=== PATIENT | female | born 1965 | race Caucasian/White ===

== ENCOUNTER 2018-08-19 15:51 | Emergency (ER) | payer OTHER ==
[2018-08-19 15:56] VITALS: BP 151/87; PULSE 72; RESP 18; TEMP 98.2
--- NOTE | 2018-08-19 16:54 | ED ---
Female Urogenital HPI - General Chief complaint: Urogenital Stated complaint: Poss UTI Time Seen by Provider: 08/19/18 16:26 Source: patient, RN notes reviewed, old records reviewed Mode of arrival: ambulatory Limitations: no limitations - History of Present Illness Initial comments: This is a 53-year-old female the ER for evaluation. Patient presents for evaluation regarding symptoms tract infection. Patient states is [place] urinary tract infections. Denies fever no abdominal pain. Is complaining of dysuria. Patient has no other complaints MD Complaint: dysuria -: days(s) Location: suprapubic Radiation: non-radiating Severity: mild Severity scale (1-10): 2 Quality: sharp Improves with: none Worsens with: urination Associated Symptoms: denies other symptoms - Related Data Home Medications Medication Instructions Recorded Confirmed Aspirin EC [Ecotrin Low Dose] 81 mg PO DAILY 08/19/18 08/19/18 Atenolol 100 mg PO DAILY 08/19/18 08/19/18 Atorvastatin [Lipitor] 80 mg PO HS 08/19/18 08/19/18 Cholecalciferol [Vitamin D3] 1,000 unit PO BID 08/19/18 08/19/18 Ferrous Sulfate [Feosol] 325 mg PO DAILY 08/19/18 08/19/18 Levothyroxine Sodium [Synthroid] 112 mcg PO DAILY 08/19/18 08/19/18 Lisinopril-Hctz 10-12.5 mg 1 tab PO DAILY 08/19/18 08/19/18 [Zestoretic 10-12.5] OXcarbazepine [Trileptal] 150 mg PO BID 08/19/18 08/19/18 [place]-3 Fatty Acids/Fish Oil [Fish 1 cap PO BID 08/19/18 08/19/18 Oil 1,000 mg Softgel] QUEtiapine [SEROquel] 50 mg PO HS 08/19/18 08/19/18 Previous Rx's Medication Instructions Recorded Nitrofurantoin Monohyd/M-Cryst 100 mg PO Q12HR #10 cap 08/19/18 [Macrobid] Allergies Allergy/AdvReac Type Severity Reaction Status Date / Time sulfamethoxazole Allergy Rash/Hives Verified 08/19/18 16:25 [From Bactrim] trimethoprim [From Bactrim] Allergy Rash/Hives Verified 08/19/18 16:25 Review of Systems ROS Statement: Those systems with pertinent positive or pertinent negative responses have been documented in the HPI. ROS Other: All systems not noted in ROS Statement are negative. Past Medical History Past Medical History: Hyperlipidemia, Hypertension, Thyroid Disorder Additional Past Medical History / Comment(s): hypothyroidism History of Any Multi-Drug Resistant Organisms: None Reported Past Surgical History: Hysterectomy, Orthopedic Surgery, Tonsillectomy Additional Past Surgical History / Comment(s): lithotripsy x3 Past Psychological History: Bipolar Smoking Status: Never smoker Past Alcohol Use History: None Reported Past Drug Use History: None Reported General Exam Limitations: no limitations General appearance: alert, in no apparent distress Head exam: Present: atraumatic, normocephalic, normal inspection Eye exam: Present: normal appearance, PERRL, EOMI. Absent: scleral icterus, conjunctival injection, periorbital swelling ENT exam: Present: normal exam, mucous membranes moist Neck exam: Present: normal inspection. Absent: tenderness, meningismus, lymphadenopathy Respiratory exam: Present: normal lung sounds bilaterally. Absent: respiratory distress, wheezes, rales, rhonchi, stridor Cardiovascular Exam: Present: regular rate, normal rhythm, normal heart sounds. Absent: systolic murmur, diastolic murmur, rubs, gallop, clicks GI/Abdominal exam: Present: soft, normal bowel sounds. Absent: distended, tenderness, guarding, rebound, rigid Extremities exam: Present: normal inspection, full ROM, normal capillary refill. Absent: tenderness, pedal edema, joint swelling, calf tenderness Back exam: Present: normal inspection Neurological exam: Present: alert, oriented X3, CN II-XII intact Psychiatric exam: Present: normal affect, normal mood Skin exam: Present: warm, dry, intact, normal color. Absent: rash Course Vital Signs 08/19/18 15:52 Temperature 98.2 F Pulse Rate 72 Respiratory 18 Rate Blood Pressure 151/87 O2 Sat by Pulse 99 Oximetry Medical Decision Making - Medical Decision Making 51 female the ER positive UTI, patient to be discharged on antibiotics - Lab Data Lab Results 08/19/18 Range/Units 16:47 Urine Color Yellow Urine Appearance Cloudy H (Clear) Urine pH 5.5 (5.0-8.0) Ur Specific [place] 1.018 (1.001-1.035) Urine Protein Negative (Negative) Urine Glucose (UA) Negative (Negative) Urine Ketones Negative (Negative) Urine Blood Trace H (Negative) Urine Nitrite Negative (Negative) Urine Bilirubin Negative (Negative) Urine Urobilinogen <2.0 (<2.0) mg/dL Ur Leukocyte Esterase Large H (Negative) Urine RBC 2 (0-5) /hpf Urine WBC 95 H (0-5) /hpf Ur Squamous Epith Cells 1 (0-4) /hpf Urine Bacteria Many H (None) /hpf Hyaline Casts 1 (0-2) /lpf Urine Mucus Rare H (None) /hpf Disposition Clinical Impression: Urinary tract infection Disposition: HOME SELF-CARE Condition: Good Instructions (If sedation given, give patient instructions): Urinary Tract Infection in Women (ED) Prescriptions: Nitrofurantoin Monohyd/M-Cryst [Macrobid] 100 mg PO Q12HR #10 cap Is patient prescribed a controlled substance at d/c from ED?: No Referrals: None,Stated [Primary Care Provider] - 1-2 days
[2018-08-19 17:05] LABS: Bacteria,Urine Many /hpf; Hyaline Casts,Urine 1 /lpf (0-2); Mucus,Urine Rare /hpf; RBC,Urine 2 /hpf (0-5); Squamous Epithelial Cell,Urine 1 /hpf (0-4); WBC,Urine 95 /hpf (0-5)
[2018-08-19 17:12] LABS: Appearance,Urine Cloudy (Clear); Bilirubin,Urine Negative (Negative); Blood,Urine Trace (Negative); Color,Urine Yellow; Glucose,Urine (UA) Negative (Negative); Ketones,Urine Negative (Negative); Leukocyte Esterase,Urine Large (Negative); Nitrite,Urine Negative (Negative); PH, Urine 5.5 (5.0-8.0); Protein,Urine Negative (Negative); Specific Gravity,Urine 1.018 (1.001-1.035); Urobilinogen,Urine <2.0 mg/dL (<2.0)
== END 2018-08-19 17:36 | disposition home or self-care (01) ==
LOC: EC 15:51
DX: N39.0 Urinary tract infection, site not specified (principal); E78.5 Hyperlipidemia, unspecified; I10 Essential (primary) hypertension; E03.9 Hypothyroidism, unspecified; F31.9 Bipolar disorder, unspecified; Z79.82 Long term (current) use of aspirin; Z79.890 Hormone replacement therapy; Z79.899 Other long term (current) drug therapy; Z88.1 Allergy status to other antibiotic agents; Z88.2 Allergy status to sulfonamides; Z90.710 Acquired absence of both cervix and uterus
CPT/HCPCS: 81001; 87077; 87086; 87186; 99283

== ENCOUNTER 2018-12-14 09:54 | Emergency (ER) | payer OTHER ==
[2018-12-14 10:03] VITALS: BP 163/91; PULSE 82; RESP 18; TEMP 98.7
--- NOTE | 2018-12-14 10:29 | ED ---
Extremity Problem HPI - General Chief complaint: Extremity Problem,Nontraumatic Stated complaint: rt arm pain Time Seen by Provider: 12/14/18 10:05 Source: patient Mode of arrival: ambulatory Limitations: no limitations - History of Present Illness Initial comments: 53-year-old female presenting today for chief complaint of right elbow pain. Patient states she works at a [employer] and repetitively does a specific motion as cause pain near the right elbow and increases with extension of the wrist. Patient states she was diagnosed with tennis elbow on and was given an oral steroid. Patient states this does not seem to be helping. Patient has not rested the right elbow. Patient states she continues to work. Patient that she has been applying heat to the area she states is not improving. Patient states imaging studies have not been obtained patient denies any numbness tingling loss sensation coolness or pallor of the extremity. Patient denies any swelling or redness of the elbow fever chills or night sweats. Remaining review of systems negative upon arrival patient appears well no signs of acute distress - Related Data Home Medications Medication Instructions Recorded Confirmed Aspirin EC [Ecotrin Low Dose] 81 mg PO DAILY 08/19/18 12/14/18 Atenolol 100 mg PO DAILY 08/19/18 12/14/18 Atorvastatin [Lipitor] 80 mg PO HS 08/19/18 12/14/18 Ferrous Sulfate [Feosol] 325 mg PO DAILY 08/19/18 12/14/18 Levothyroxine Sodium [Synthroid] 112 mcg PO DAILY 08/19/18 12/14/18 Lisinopril-Hctz 10-12.5 mg 1 tab PO DAILY 08/19/18 12/14/18 [Zestoretic 10-12.5] [place]-3 Fatty Acids/Fish Oil [Fish 1 cap PO BID 08/19/18 12/14/18 Oil 1,000 mg Softgel] OXcarbazepine [Trileptal] 300 mg PO BID 12/14/18 12/14/18 Pantoprazole [Protonix] 40 mg PO DAILY 12/14/18 12/14/18 QUEtiapine [SEROquel] 100 mg PO HS 12/14/18 12/14/18 amLODIPine [Norvasc] 5 mg PO HS 12/14/18 12/14/18 predniSONE 40 mg PO DAILY 12/14/18 12/14/18 Allergies Allergy/AdvReac Type Severity Reaction Status Date / Time sulfamethoxazole Allergy Rash/Hives Verified 12/14/18 10:09 [From Bactrim] trimethoprim [From Bactrim] Allergy Rash/Hives Verified 12/14/18 10:09 Review of Systems ROS Statement: Those systems with pertinent positive or pertinent negative responses have been documented in the HPI. ROS Other: All systems not noted in ROS Statement are negative. Past Medical History Past Medical History: Hyperlipidemia, Hypertension, Thyroid Disorder Additional Past Medical History / Comment(s): hypothyroidism, EKG-leftBBB History of Any Multi-Drug Resistant Organisms: None Reported Past Surgical History: Hysterectomy, Orthopedic Surgery, Tonsillectomy Additional Past Surgical History / Comment(s): lithotripsy x3 Past Psychological History: Bipolar Smoking Status: Never smoker Past Alcohol Use History: None Reported Past Drug Use History: None Reported General Exam - General Exam Comments Initial Comments: General: The patient is awake and alert, in no distress, and does not appear acutely ill. Eye: Pupils are equal, round and reactive to light, extra-ocular movements are intact. No nystagmus. There is normal conjunctiva bilaterally. No signs of icterus. Ears, nose, mouth and throat: There are moist mucous membranes and no oral lesions. Neck: The neck is supple, there is no tenderness or JVD. Cardiovascular: There is a regular rate and rhythm. No murmur, rub or gallop is appreciated. Respiratory: Lungs are clear to auscultation, respirations are non-labored, breath sounds are equal. No wheezes, stridor, rales, or rhonchi. Musculoskeletal: Patient is able to fully range at the elbows bilaterally patient does not have significant tenderness patient states she is increased pain at the right elbow with extension of the wrist. Patient is tender over the lateral upper condyle. Normal ROM, no tenderness at the wrists or shoulders bilaterally. Strength 5/5 shoulders elbows and wrists bilaterally. Sensation intact both proximal distal to injury site. Radial pulses equal bilaterally 2+. Neurological: A&O x 3. CN II-XII intact, There are no obvious motor or sensory deficits. Coordination appears grossly intact. Speech is normal. Skin: Skin is warm and dry and no rashes or lesions are noted. Psychiatric: Cooperative, appropriate mood & affect, normal judgment. Limitations: no limitations Course Vital Signs 12/14/18 10:00 Temperature 98.7 F Pulse Rate 82 Respiratory 18 Rate Blood Pressure 163/91 O2 Sat by Pulse 100 Oximetry Medical Decision Making - Medical Decision Making Very well-appearing 53-year-old female recently diagnosed with tennis elbow. Patient requesting imaging studies. Patient denies any trauma to the elbow. Patient does have repetitive range of motion at work. Patient has most pain with extension at the right wrist. I feel this is consistent with tennis elbow. Imaging studies are obtained returned rule out osseous abnormality. No acute abnormality. Patient be discharged with orthopedic surgery follow-up instruction to obtain brace for extensor tendinitis. Patient was given Toradol in the emergency department. Patient is agreeable care plan I instructed the importance of rest from the repetitive movements use of ice and NSAIDs at home. Patient verbalized understanding. Patient was discharged appearing well. Disposition Clinical Impression: Tendonitis, Overuse injury Disposition: HOME SELF-CARE Instructions (If sedation given, give patient instructions): Tennis Elbow (ED) Additional Instructions: Please use medication as discussed. Please follow-up with family doctor in the next 2 days, and orthopedic surgery if symptoms persist. Recommend resting elbow and applying ice as discussed. Please return to emergency room if the symptoms increase or worsen or for any other concerns. Is patient prescribed a controlled substance at d/c from ED?: No Referrals: Coby Zimmerman MD [Primary Care Provider] - 1-2 days Eduardo Dailey MD [STAFF PHYSICIAN] - 1-2 days Time of Disposition: 10:57
--- NOTE | 2018-12-14 10:51 | XR ---
EXAMINATION TYPE: XR elbow complete RT , 3 VIEWS DATE OF EXAM ORDERED: 12/14/2018 HISTORY: Pain. COMPARISON: None. FINDINGS: No fracture, dislocation or elbow joint effusion is seen. IMPRESSION: NO ACUTE OSSEOUS LESION.
[2018-12-14] MEDS ORDERED: KETOROLAC 30 MG/ML 1 ML VIAL IM STA (10:58)
== END 2018-12-14 11:16 | disposition home or self-care (01) ==
LOC: EC 09:54
DX: M70.88 Other soft tissue disorders related to use, overuse and pressure other site (principal); E78.5 Hyperlipidemia, unspecified; I10 Essential (primary) hypertension; E03.9 Hypothyroidism, unspecified; F31.9 Bipolar disorder, unspecified; Z79.82 Long term (current) use of aspirin; Z79.890 Hormone replacement therapy; Z79.52 Long term (current) use of systemic steroids; Z79.899 Other long term (current) drug therapy; Z88.2 Allergy status to sulfonamides
CPT/HCPCS: 73080; 99283; 96372; J1885

== ENCOUNTER 2018-12-21 20:52 | Emergency (ER) | payer OTHER ==
[2018-12-21 22:03] VITALS: TEMP 98
--- NOTE | 2018-12-21 22:24 | ED ---
Female Urogenital HPI - General Source: patient Mode of arrival: ambulatory Limitations: no limitations <Kanchan Lieberman - Last Filed: 12/22/18 00:40> <Armida Interiano - Last Filed: 12/22/18 07:35> - General Chief complaint: Urogenital Stated complaint: Abscess Time Seen by Provider: 12/21/18 21:51 - History of Present Illness Initial comments: 53-year-old female patient presents to the emergency department today for evaluation of a lesion to her left labia. Patient states that she noticed this "lump" 3 days ago. Patient states the area seems to be getting bigger. Patient states she did try to squeeze it but nothing would come out. Patient is reporting mild discomfort and burning to the area. Denies any itching. Denies any history of similar lesion. She denies any fever or chills with this. Denies any abnormal vaginal bleeding or discharge. Denies any hematuria, dysuria, urinary frequency, urinary urgency. Patient denies any recent rash, shortness breath, chest pain, abdominal pain, nausea, vomiting, diarrhea, constipation, back pain, numbness, tingling, dizziness, weakness, headache, visual changes, or any other complaints. (Kanchan Lieberman) - Related Data Home Medications Medication Instructions Recorded Confirmed Aspirin EC [Ecotrin Low Dose] 81 mg PO DAILY 08/19/18 12/14/18 Atenolol 100 mg PO DAILY 08/19/18 12/14/18 Atorvastatin [Lipitor] 80 mg PO HS 08/19/18 12/14/18 Ferrous Sulfate [Feosol] 325 mg PO DAILY 08/19/18 12/14/18 Levothyroxine Sodium [Synthroid] 112 mcg PO DAILY 08/19/18 12/14/18 Lisinopril-Hctz 10-12.5 mg 1 tab PO DAILY 08/19/18 12/14/18 [Zestoretic 10-12.5] [place]-3 Fatty Acids/Fish Oil [Fish 1 cap PO BID 08/19/18 12/14/18 Oil 1,000 mg Softgel] OXcarbazepine [Trileptal] 300 mg PO BID 12/14/18 12/14/18 Pantoprazole [Protonix] 40 mg PO DAILY 12/14/18 12/14/18 QUEtiapine [SEROquel] 100 mg PO HS 12/14/18 12/14/18 amLODIPine [Norvasc] 5 mg PO HS 12/14/18 12/14/18 predniSONE 40 mg PO DAILY 12/14/18 12/14/18 Previous Rx's Medication Instructions Recorded Acyclovir [Zovirax] 400 mg PO TID #30 tab 12/21/18 Allergies Allergy/AdvReac Type Severity Reaction Status Date / Time sulfamethoxazole Allergy Rash/Hives Verified 12/21/18 21:08 [From Bactrim] trimethoprim [From Bactrim] Allergy Rash/Hives Verified 12/21/18 21:08 Review of Systems ROS Other: All systems not noted in ROS Statement are negative. <Kanchan Lieberman - Last Filed: 12/22/18 00:40> ROS Other: All systems not noted in ROS Statement are negative. <Armida Interiano - Last Filed: 12/22/18 07:35> ROS Statement: Those systems with pertinent positive or pertinent negative responses have been documented in the HPI. Past Medical History Past Medical History: Hyperlipidemia, Hypertension, Thyroid Disorder Additional Past Medical History / Comment(s): hypothyroidism, EKG-leftBBB History of Any Multi-Drug Resistant Organisms: None Reported Past Surgical History: Hysterectomy, Orthopedic Surgery, Tonsillectomy Additional Past Surgical History / Comment(s): lithotripsy x3 Past Psychological History: Bipolar Smoking Status: Never smoker Past Alcohol Use History: None Reported Past Drug Use History: None Reported <Kanchan Lieberman - Last Filed: 12/22/18 00:40> General Exam Limitations: no limitations General appearance: alert, in no apparent distress, other (Physical well- developed, well-nourished adult female patient in no acute distress. Vital signs upon presentation are temperature 98.9F, pulse 75, respirations 18, blood pressure 147/84, pulse ox 100% on room air.) Respiratory exam: Present: normal lung sounds bilaterally. Absent: respiratory distress, wheezes, rales, rhonchi, stridor Cardiovascular Exam: Present: regular rate, normal rhythm, normal heart sounds. Absent: systolic murmur, diastolic murmur, rubs, gallop, clicks External exam: Present: other (There is a lesion noted to the left labia, and erythematous base with multiple vesicles. Tender to touch.). Absent: normal external exam Neurological exam: Present: alert, oriented X3, CN II-XII intact Psychiatric exam: Present: normal affect, normal mood Skin exam: Present: warm, dry, intact, normal color. Absent: rash <Kanchan Lieberman - Last Filed: 12/22/18 00:40> Course Vital Signs 12/21/18 12/21/18 12/21/18 21:04 22:00 22:49 Temperature 98.9 F 98 F 98 F Pulse Rate 75 78 74 Respiratory 18 16 18 Rate Blood Pressure 147/84 127/84 118/86 O2 Sat by Pulse 100 97 97 Oximetry Medical Decision Making <Kanchan Lieberman - Last Filed: 12/22/18 00:40> <Armida Interiano - Last Filed: 12/22/18 07:35> - Medical Decision Making 53-year-old female patient presents to the emergency department today for evaluation of a lesion to the left labia. Physical examination did reveal lesion on the left labia with an erythematous base with multiple small vesicles. It is tender to touch. No drainage. Patient appears consistent with genital herpes. Patient be started on acyclovir and instructed to follow-up with her primary care physician or shower attendant for further evaluation. She is instructed to avoid sexual contact until lesions have resolved. Return parameters were discussed in detail. She verbalizes understanding and agrees with this plan. (Kanchan Lieberman) I was available for consultation in the emergency department. The history and physical exam were done by the midlevel provider. I was consulted for this patient's care. I reviewed the case with the midlevel provider and based on their presentation of the patient, I agree with the assessment, medical decision making and plan of care as documented. Chart was dictated using [employer] dictation software. Attempts were made to correct any dictation errors however some typographical errors may persist. (Armida Interiano) Disposition Is patient prescribed a controlled substance at d/c from ED?: No Time of Disposition: 22:24 <Kanchan Lieberman - Last Filed: 12/22/18 00:40> <Armida Interiano - Last Filed: 12/22/18 07:35> Clinical Impression: Genital herpes Disposition: HOME SELF-CARE Condition: Good Instructions (If sedation given, give patient instructions): Genital Herpes [place] (ED) Additional Instructions: Avoid sexual intercourse until lesions are clear. Complete prescription in full. Follow up with your primary care physician for further testing. Return to the emergency department immediately for any new, worsening, or concerning symptoms Prescriptions: Acyclovir [Zovirax] 400 mg PO TID #30 tab Referrals: Coby Zimmerman MD [Primary Care Provider] - 1-2 days
[2018-12-21 22:52] VITALS: BP 118/86; PULSE 74; RESP 18
== END 2018-12-21 23:03 | disposition home or self-care (01) ==
LOC: EC 20:52
DX: A60.00 Herpesviral infection of urogenital system, unspecified (principal); E78.5 Hyperlipidemia, unspecified; I10 Essential (primary) hypertension; E03.9 Hypothyroidism, unspecified; F31.9 Bipolar disorder, unspecified; Z88.2 Allergy status to sulfonamides; Z79.52 Long term (current) use of systemic steroids; Z79.82 Long term (current) use of aspirin; Z79.890 Hormone replacement therapy; Z79.899 Other long term (current) drug therapy
CPT/HCPCS: 99282